=== PATIENT | male | born 1935 | race Asian ===

== ENCOUNTER 2022-11-05 15:59 | Emergency (ER) | payer SELFPAY ==
[~2022-11-05] VITALS: Ht 162.6 cm; Wt 59.0 kg
[2022-11-05 16:00] VITALS: BP 159/98
--- NOTE | 2022-11-05 16:04 | NUR ---
[facility] TRANSPORT TO BED 11
[2022-11-05] MEDS ORDERED: LIDOCAINE 1% 500 MG/ 50 ML VIAL INJ ONE (17:35)
[2022-11-05 17:49] LABS: ANION GAP 10.5 (8-16); CARBON DIOXIDE 29.5 mmol/L (21-32); CHLORIDE 100 mmol/L (98-107); CREATININE 0.9 mg/dL (0.6-1.3); GLUCOSE 115 mg/dL (74-106); SODIUM SERUM 136 mmol/L (136-145); UREA NITROGEN, BLOOD 25 mg/dL (7-18)
[2022-11-05 17:58] LABS: ALBUMIN 3.3 g/dL (3.4-5.0); ASPARTATE AMINOTRANSFERASE 41 U/L (15-37); TOTAL BILIRUBIN 0.3 mg/dL (0.0-1.0)
[2022-11-05] MEDS ORDERED: LIDOCAINE MPF 1% 5 ML ONE (18:09)
--- NOTE | 2022-11-05 19:00 | NUR ---
Flu and Telma swabs dropped off at lab.
--- NOTE | 2022-11-05 19:30 | NUR ---
Report given to Erwin at [facility]. Awaiting transport.
--- NOTE | 2022-11-05 19:48 | NUR ---
[facility] AT BEDSIDE TAKING REPORT FROM MICHAEL GONZALEZ
--- NOTE | 2022-11-05 19:52 | NUR ---
Patient to be transferred to [facility]. Is being transferred due to trauma. Receiving facility has accepting physician and available space. ER physician has signed transfer form. Patient or responsible republican has agreed to transfer and signed form. Patient belongings inventoried and will be sent with patient. Copy of nursing notes, lab reports, EKG, Physicians Orders and X-rays to be sent with patient. Report called to Gus at receiving facility/[facility] ER. [facility] ambulance service has been called for transfer. Report given to [facility] ambulance staff Shahbaz. [facility] ambulance staff Shahbaz verbalized understanding of report, no further questions. Addendum: 11/05/22 at 1999 by [id number] Patient to be transferred to [facility]. Is being transferred due to trauma. Receiving facility has accepting physician and available space. ER physician has signed transfer form. Patient or responsible republican has agreed to transfer and signed form. Patient belongings inventoried and will be sent with patient. Copy of nursing notes, lab reports, EKG, Physicians Orders and X-rays to be sent with patient. Report called to Erwin at receiving facility/[facility] ER. [facility] ambulance service has been called for transfer. Report given to [facility] ambulance staff Shahbaz. [facility] ambulance staff Shahbaz verbalized understanding of report, no further questions.
[2022-11-05 20:01] VITALS: BP 155/84
== END 2022-11-05 20:01 | disposition short-term general hospital (02) ==
LOC: MED 15:59
DX: S12.401A Unspecified nondisplaced fracture of fifth cervical vertebra, initial encounter for closed fracture (principal); S01.112A Laceration without foreign body of left eyelid and periocular area, initial encounter; E11.65 Type 2 diabetes mellitus with hyperglycemia; I10 Essential (primary) hypertension; Z79.4 Long term (current) use of insulin; Z79.899 Other long term (current) drug therapy; W18.30XA Fall on same level, unspecified, initial encounter; Y93.89 Activity, other specified; Y92.89 Other specified places as the place of occurrence of the external cause; Y99.8 Other external cause status
CPT/HCPCS: 12013; 36415; 70450; 72125; 73130; 80053; 83605; 84484; 87040; 93005; 99291; J2001; Q0092